=== PATIENT | female | born 1995 | race Caucasian/White ===

== ENCOUNTER 2018-07-04 18:29 | Emergency (ER) | payer BC, OTHER ==
[2018-07-04 19:05] VITALS: BP 138/62
== END 2018-07-04 19:51 | disposition left against medical advice (07) ==
LOC: ED 18:29
DX: R11.10 Vomiting, unspecified (principal); R20.2 Paresthesia of skin; R10.9 Unspecified abdominal pain; Z53.21 Procedure and treatment not carried out due to patient leaving prior to being seen by health care provider

== ENCOUNTER 2019-01-24 21:41 | Emergency (ER) | payer BC, OTHER ==
[2019-01-24 21:49] VITALS: BP 133/77
--- NOTE | 2019-01-24 21:56 | UC ---
Abdominal Pain Female HPI - HPI Summary HPI Summary: sudden onset of mid-epigatric pain today acute nausea and vomiting---did drink 7 alcoholic beverages yesterday---no past abdomen surgery - History of Current Complaint Chief Complaint: UCAbdominalPain Stated Complaint: ABD PAIN Time Seen by Provider: 01/24/19 21:42 Hx Obtained From: Patient Hx Last Menstrual Period: 01/10/19 ?: No Onset/Duration: Sudden Onset, Lasting Hours Timing: Constant Pain Intensity: 8 Pain Scale Used: 0-10 Numeric Location: Other - robert umbillical Radiates: No Character: Aching, Cramping Aggravating Factor(s): Food Alleviating Factor(s): Nothing Associated Signs and Symptoms: Positive: Decreased Appetite, Nausea, Vomiting. Negative: Urinary Symptoms, Diarrhea Allergies/Adverse Reactions: Allergies Allergy/AdvReac Type Severity Reaction Status Date / Time No Known Allergies Allergy Verified 01/24/19 22:14 PMH/Surg Hx/FS Hx/Imm Hx Previously Healthy: Yes - Surgical History Surgical History: Yes Surgery Procedure, Year, and Place: WISDOM TEETH - Family History Known Family History: Positive: None - Social History Occupation: Student Lives: Dormitory/Roommates Alcohol Use: Occasionally Substance Use Type: Marijuana Substance Use Comment - Amount & Last Used: weekly Smoking Status (MU): Heavy Every Day Tobacco Smoker Type: eCigarettes Review of Systems All Other Systems Reviewed And Are Negative: Yes Constitutional: Positive: Negative Skin: Positive: Negative Eyes: Positive: Negative ENT: Positive: Negative Respiratory: Positive: Negative Cardiovascular: Positive: Negative Gastrointestinal: Positive: Abdominal Pain, Vomiting, Nausea Genitourinary: Positive: Negative Motor: Positive: Negative Neurovascular: Positive: Negative Musculoskeletal: Positive: Negative Neurological: Positive: Negative Psychological: Positive: Negative Is Patient Immunocompromised?: No Physical Exam Triage Information Reviewed: Yes Appearance: Well-Appearing, Ill-Appearing, Pain Distress Vital Signs: Initial Vital Signs Temp 96.4 F 01/24/19 21:43 Pulse 55 01/24/19 21:43 Resp 18 01/24/19 21:43 BP 133/77 01/24/19 21:43 Pulse Ox 97 01/24/19 21:43 Vital Signs Reviewed: Yes Eye Exam: Normal Eyes: Positive: Conjunctiva Clear ENT Exam: Normal ENT: Positive: Normal ENT inspection, Hearing grossly normal. Negative: Trismus , Muffled voice, Hoarse voice Dental Exam: Normal Neck exam: Normal Neck: Positive: Supple, Nontender Respiratory Exam: Normal Respiratory: Positive: Chest non-tender, Normal breath sounds, No respiratory distress, No accessory muscle use Cardiovascular Exam: Normal Cardiovascular: Positive: RRR, Pulses Normal, Brisk Capillary Refill Abdomen Description: Positive: Soft, Other: - epigastric, periumbil. pain. Negative: No Organomegaly, CVA Tenderness (R), CVA Tenderness (L) Bowel Sounds: Positive: Present Musculoskeletal Exam: Normal Musculoskeletal: Positive: Strength Intact, ROM Intact, No Edema Neurological Exam: Normal Neurological: Positive: Alert, Muscle Tone Normal Psychological Exam: Normal Skin Exam: Normal Abd Pain Female Course/Dx - Course Course Of Treatment: npo-patient refused IV and IV pain medication, friend will drive patient to hospital - Differential Dx/Diagnosis Provider Diagnosis: Acute abdominal pain Discharge - Sign-Out/Discharge Documenting (check all that apply): Patient Departure All imaging exams completed and their final reports reviewed: No Studies - Discharge Plan Condition: Stable Disposition: HOME-RECOMMEND TO ED Patient Education Materials: Acute Abdominal Pain (ED) Referrals: No Primary Care Phys,NOPCP [Primary Care Provider] - Additional Instructions: Nothing to eat of drink go directly to emergency department for further care - Billing Disposition and Condition Condition: STABLE Disposition: Home-Recommend to ED - Attestation Statements Provider Attestation: I was available for consult. This patient was seen by the PANTERA. The patient was not presented to , seen by or examined by la -Raghu Oleary MD
== END 2019-01-24 21:50 | disposition home health service (06) ==
LOC: UCEAST 21:41
DX: R10.13 Epigastric pain (principal); R10.33 Periumbilical pain; R11.2 Nausea with vomiting, unspecified; F17.290 Nicotine dependence, other tobacco product, uncomplicated
CPT/HCPCS: 99212; G0463

== ENCOUNTER 2019-01-24 22:11 | Emergency (ER) | payer BC ==
--- NOTE | 2019-01-24 22:28 | ED ---
Abdominal Pain/Female - HPI Summary HPI Summary: This patient is a 23 year old female presenting to [facility] with a chief complaint of epigastric pain 5 hours ago. The patient states she was consuming ETOH yesterday during the day. The patient had a club sandwhich 8 hours ago. She states she has experienced nausea and vomiting. She states the pain radiates to her left shoulder. She denies dysuria. She rates her pain 7/10 in severity. - History of Current Complaint Chief Complaint: EDAbdPain Stated Complaint: "ABD PAIN PER PT" Time Seen by Provider: 01/24/19 22:22 Hx Obtained From: Patient Hx Last Menstrual Period: 01/10/19 Onset/Duration: Lasting Hours Severity Currently: Moderate Pain Intensity: 7 Pain Scale Used: 0-10 Numeric Location: Epigastric Allergies/Adverse Reactions: Allergies Allergy/AdvReac Type Severity Reaction Status Date / Time No Known Allergies Allergy Verified 01/24/19 22:14 Home Medications: Home Medications Dextroamphetamine/Amphetamine [Adderall 20 mg Tablet] 20 mg PO BID PRN 01/24/19 [History Confirmed 01/24/19] PMH/Surg Hx/FS Hx/Imm Hx Endocrine/Hematology History: Denies: Hx Diabetes Cardiovascular History: Denies: Hx Hypertension, Hx Pacemaker/ICD Respiratory History: Denies: Hx Asthma Sensory History: Denies: Hx Hearing Aid Psychiatric History: Denies: Hx Panic Disorder - Surgical History Surgery Procedure, Year, and Place: WISDOM TEETH Infectious Disease History: No Infectious Disease History: Denies: Traveled Outside the [place] in Last 30 Days - Family History Known Family History: Negative: Cardiac Disease - Social History Alcohol Use: Occasionally Substance Use Type: Reports: Marijuana Substance Use Comment - Amount & Last Used: weekly Smoking Status (MU): Heavy Every Day Tobacco Smoker Type: eCigarettes Review of Systems Negative: Fever Positive: Abdominal Pain, Vomiting, Nausea All Other Systems Reviewed And Are Negative: Yes Physical Exam - Summary Physical Exam Summary: VITAL SIGNS: Reviewed. GENERAL: Patient is a well-developed and nourished FEMALE who is lying comfortable in the stretcher. Patient is not in any acute respiratory distress. HEAD AND FACE: No signs of trauma. No ecchymosis, hematomas or skull depressions. No sinus tenderness. EYES: PERRLA, EOMI x 2, No injected conjunctiva, no nystagmus. EARS: Hearing grossly intact. Ear canals and tympanic membranes are within normal limits. MOUTH: Oropharynx within normal limits. NECK: Supple, trachea is midline, no adenopathy, no JVD, no carotid bruit, no c- spine tenderness, neck with full ROM CHEST: Symmetric, no tenderness at palpation LUNGS: Clear to auscultation bilaterally. No wheezing or crackles. CVS: Regular rate and rhythm, S1 and S2 present, no murmurs or gallops appreciated. ABDOMEN: Soft, epigastric and mild RUQ tenderness. No signs of distention. No rebound no guarding, and no masses palpated. Bowel sounds are normal. EXTREMITIES: FROM in all major joints, no edema, no cyanosis or clubbing. NEURO: Alert and oriented x 3. No acute neurological deficits. Speech is normal and follows commands. SKIN: Dry and warm Triage Information Reviewed: Yes Vital Signs On Initial Exam: Initial Vitals Temp Pulse Resp BP Pulse Ox 97.7 F 63 16 127/98 97 01/24/19 22:12 01/24/19 22:12 01/24/19 22:12 01/24/19 22:12 01/24/19 22:12 Vital Signs Reviewed: Yes Diagnostics - Vital Signs Vital Signs Temp Pulse Resp BP Pulse Ox 01/24/19 22:12 97.7 F 63 16 127/98 97 - Laboratory Result Diagrams: 01/24/19 22:45 01/24/19 22:45 Lab Statement: Any lab studies that have been ordered have been reviewed, and results considered in the medical decision making process. - Ultrasound No standard instances Ultrasound Interpretation Completed By: Radiologist Summary of Ultrasound Findings: Gallbladder U/S: Indeterminate hepatic mass with etiologies including hemangioma, FNH, and adenoma. Followup with a liver protocol MRI recommended. Consider using a contrasst agent with a hepatoiliary phase (Multihance and Eovist). ED Provider has reviewed this report. Re-Evaluation - Re-Evaluation First Eval Re-Evaluation Time: 00:11 Comment: Repeat abdominal exam: No tenderness. Patient feels better. Abdominal Pain Fem Course/Dx - Course Course Of Treatment: This patient is a 23 year old female presenting to [facility] with a chief complaint of epigastric pain 5 hours ago. Gallbladder U/S is remarkable for gastritis. Upon reevaluation the patient states she feels better. Patient will be discharged and instructed to follow up with private MD. This plan was discussed with the patient and she is agreeable with this plan. - Diagnoses Provider Diagnoses: Gastritis Discharge - Sign-Out/Discharge Documenting (check all that apply): Patient Departure - Discharge Patient Received Moderate/Deep Sedation with Procedure: No - Discharge Plan Condition: Stable Disposition: HOME Patient Education Materials: Gastritis (ED) Referrals: [facility] [place] [facility] [Outside] Additional Instructions: Follow up with Private MD. Return to ED with any new or worsening symptoms. - Attestation Statements Document Initiated by Scribe: Yes Documenting Scribe: Hank Bailey Provider For Whom Rosiibe is Documenting (Include Credential): Reno Tavares MD Scribe Attestation: IHank, scribed for Reno Tavares MD on 01/25/19 at 0006. Status of Scribe Document: Ready
[2019-01-24] MEDS ORDERED: NS 0.9% 1000 ML** 1,000 ML IV ONE (22:30)
[2019-01-24] MEDS ORDERED: Morphine 4 MG/ML VIAL (1 ml) 4 MG/ML VIAL IV ONE (22:30)
[2019-01-24] MEDS ORDERED: Metoclopramide IV* 5 MG/ML 2 ML VIAL IV SLOW PU ONE (22:30)
[2019-01-24] MEDS ORDERED: Pantoprazole IV* 40 MG IV ONE (22:31)
[2019-01-24 22:52] LABS: ABS Basophils 0.1 10^3/ul (0-0.2); ABS Lymphocytes 2.1 10^3/ul (1.0-4.8); ABS Monocytes 1.1 10^3/ul (0-0.8); ABS Neutrophils 11.6 10^3/ul (1.5-7.7); Eosinophil % 0.3 %; Hematocrit 39 % (35-47); Hemoglobin 13.2 g/dL (12.0-16.0); Lymphocyte % 14.1 %; Mean Corpuscular HGB Conc 34 g/dL (31-36); Mean Corpuscular Hemoglobin 29 pg (27-31); Mean Corpuscular Volume 86 fL (80-97); Mean Platelet Volume 6.8 fL (7.4-10.4); Platelet Count 383 10^3/uL (150-450); Red Blood Count 4.51 10^6 /uL (3.70-4.87); Red Cell Distribution Width 13 % (10.5-15); White Blood Count 14.9 10^3/uL (3.5-10.8)
[2019-01-24 23:10] LABS: ALT 9 U/L (7-52); AST 15 U/L (13-39); Albumin 4.4 g/dL (3.2-5.2); Albumin/Globulin Ratio 1.7 (1-3); Alkaline Phosphatase 61 U/L (34-104); Amylase 47 U/L (29-103); Anion Gap 10 mmol/L (2-11); BUN/Creatinine Ratio 16.2 (8-20); Blood Urea Nitrogen 12 mg/dL (6-24); C Reactive Protein < 1.00 mg/L (<8.01); CO2 Carbon Dioxide 24 mmol/L (22-32); Calcium 9.9 mg/dL (8.6-10.3); Chloride 102 mmol/L (101-111); EGFR African American 118.7 (>60); EGFR Non-African American 98.1 (>60); Globulin 2.6 g/dL (2-4); Glucose 124 mg/dL (70-100); Potassium 4.1 mmol/L (3.5-5.0); Sodium 136 mmol/L (135-145)
[2019-01-24 23:15] LABS: HCG Pregnancy < 0.60 mIU/mL
[2019-01-24 23:54] LABS: Urine Appearance Turbid; Urine Bilirubin Negative (Negative); Urine Blood Negative (Negative); Urine Color Yellow; Urine Glucose Negative (Negative); Urine Ketones 2+ (Negative); Urine Nitrite Negative (Negative); Urine Protein Negative (Negative); Urine Specific Gravity 1.025 (1.010-1.030); Urine Urobilinogen Negative (Negative)
[2019-01-25 00:20] VITALS: BP 106/59
== END 2019-01-25 00:20 | disposition home or self-care (01) ==
LOC: ED 22:11
DX: K29.70 Gastritis, unspecified, without bleeding (principal); F17.290 Nicotine dependence, other tobacco product, uncomplicated
CPT/HCPCS: 36415; 76705; 80053; 81003; 82150; 83690; 84702; 85025; 86140; 96361; 96374; 96375; 99283; J2270; J2765